=== PATIENT | female | born 1935 | race Hispanic/Latino ===

== ENCOUNTER 2017-03-06 12:31 | Emergency (ER) | payer MEDICARE ==
[2017-03-06] MEDS ORDERED: Ibuprofen 200 MG TAB ONE (12:57)
--- NOTE | 2017-03-06 13:10 | RAD ---
TWO VIEWS LEFT FOREARM: Comparison: None. History: Slipped on ice and fell, left wrist deformity and pain. FINDINGS: Two views of the left forearm shows a fracture of the distal radial metaphysis which is moderately di splaced. No obvious ulnar fracture is seen. Surrounding soft tissue swelling and deformity are seen. IMPRESSION: Distal radius fracture. POS: [facility]
[2017-03-06] MEDS ORDERED: Bupivacaine 0.5% 10 ML VIAL ONE (13:16)
--- NOTE | 2017-03-06 14:38 | RAD ---
LEFT WRIST THREE VIEWS: History: Post reduction. Comparison: Earlier same day. FINDINGS: There has been no significant improvement in alignment of the distal radius fracture. Continued dorsa l space and angulation. Ulnar styloid fracture is present. IMPRESSION: 1. Continued dorsal displacement and angulation with impaction of distal radius fracture. 2. Ulnar styloid fracture. POS: [facility]
== END 2017-03-06 15:00 | disposition home or self-care (01) ==
LOC: SCSER 12:31
DX: S52.612A Displaced fracture of left ulna styloid process, initial encounter for closed fracture (principal); S52.502A Unspecified fracture of the lower end of left radius, initial encounter for closed fracture; E78.5 Hyperlipidemia, unspecified; I10 Essential (primary) hypertension; F41.9 Anxiety disorder, unspecified; F32.9 Major depressive disorder, single episode, unspecified; W18.09XA Striking against other object with subsequent fall, initial encounter
CPT/HCPCS: 25605; J3490

== ENCOUNTER 2017-03-08 07:56 | Day surgery (SDC) | payer MEDICARE ==
[2017-03-08] MEDS ORDERED: CEFAZOLIN/Water 2 GM/20 ML SYRINGE ONE (08:57)
[2017-03-08] MEDS ORDERED: Fentanyl 100 MCG/2 ML VIAL ONE ×3 (09:10→11:13)
[2017-03-08 09:15] LABS: Anion Gap 15 mmol/L (10-20); BUN (Urea Nitrogen) 21 mg/dL (9.8-20.1); Calc. Creatinine Clearance 54 mL/min (70-130); Calcium 9.9 mg/dL (7.8-10.44); Carbon Dioxide 27 mmol/L (23-31); Chloride 100 mmol/L (98-107); Estimated GFR-MDRD 67; Glucose 114 mg/dL (83-110); Potassium 4.3 mmol/L (3.5-5.1); Sodium 138 mmol/L (136-145)
[2017-03-08] MEDS ORDERED: Bupivacaine PF 0.5% 30 ML VIAL ONE (10:07)
[2017-03-08] MEDS ORDERED: ePHEDrine/0.9% NaCl/PF SYRINGE 50 mg/10 ml ONE (12:34)
[2017-03-08] MEDS ORDERED: Propofol 200 MG/20 ML VIAL ONE (12:34)
[2017-03-08] MEDS ORDERED: Dexamethasone 20 MG/5 ML VIAL ONE (12:34)
[2017-03-08] MEDS ORDERED: Ondansetron HCl/PF 4 MG/2 ML Vial ONE (12:34)
[2017-03-08] MEDS ORDERED: Lidocaine 1% PF 5 ML VIAL ONE (12:34)
[2017-03-08] MEDS ORDERED: traMADol HCl 50 MG TAB ONE (13:32)
--- NOTE | 2017-03-08 21:12 | OP ---
DATE OF PROCEDURE: 03/08/2017 PREOPERATIVE DIAGNOSIS: Left distal radius, extraarticular. POSTOPERATIVE DIAGNOSIS: Left distal radius, extraarticular. PROCEDURE: Open reduction internal fixation, left distal radius. ANESTHESIA: General. SURGEON: Madi Patterson M.D. GEODETIC ENGINEER: Jesse Reyes PA-C. IMPLANTS: Synthes 2.4 mm LCP variable angle two column distal radial plate. TOURNIQUET TIME: Approximately 50 minutes at 250 mmHg. COMPLICATIONS: None. DRAINS: None. SPECIMEN: None. OUTCOME: Satisfactory. INDICATIONS: The patient is an 81-year-old lady status post slip on ice, falling on an outstretched left hand. She sustained a displaced extraarticular distal radius fracture. After discussion with p atmark including risks and benefits, we decided to proceed with open reduction internal fixation. In formed consent has been obtained. I believe all questions answered. PROCEDURE IN DETAIL: The patient was brought to the operating room and a timeout performed followed by the induction of general anesthesia. The patient was then positioned supine on the OR table with the left arm held on an arm board. Next, a sterile prep and drape was performed of the left upper ex tremity. The limb was then exsanguinated with Esmarch bandage and tourniquet inflated to 250 mmHg. A volar skin incision was made incorporating an old scar that she had along the volar radial aspect o f the distal forearm and then extending distally to the volar wrist crease. After skin was sharply i ncised, dissection was carried down bluntly between the flexor carpi radialis and brachioradialis. T he radial neurovascular bundle was identified and reflected radially. The pronator quadratus was rel eased off the radial border of the distal radius and reflected medially and then exposure of the dist al radius was complete. The fracture was reduced and valve reduced, held in place provisionally with a K-wire which was passed from the tip of the radial styloid obliquely across the fracture line into the more proximal radial diaphysis. This was then followed by application of a 2-hole two column va riable angle plate along the volar cortex of the distal radius. This was held in place provisionally with a 3.5 mm cortical screw proximal to the fracture. The fracture was then further manipulated un kenyatta C-arm guidance and then four locking screws were placed along the horizontal limb of the plate ca pturing the distal fragment. This was then followed by insertion of the final 3.5 mm screw proximall y. AP lateral C-arm images were then obtained that showed confucianism of radial length, normal radia l inclination, and confucianism of volar tilt. The limb was then irrigated with normal saline with bu lb syringe and then closed in layers with 0 Vicryl deep, followed by 2-0 Vicryl and nylon for the ski n. A Xeroform gauze and fiberglass splint were applied to the wrist and then the tourniquet was let down and the patient transferred to recovery room in stable condition. There were no complications. She tolerated the procedure well.
--- NOTE | 2017-03-09 07:17 | EKG ---
Test Reason : PREOP Blood Pressure : / mmHG Vent. Rate : 082 BPM Atrial Rate : 082 BPM P-R Int : 164 ms QRS Dur : 082 ms QT Int : 376 ms P-R-T Axes : 048 -23 028 degrees QTc Int : 439 ms Normal sinus rhythm Normal ECG When compared with ECG of 24-SEP-2015 11:59, No significant change was found Confirmed by GEOFFREY ALBERT, SLacey ([id number]) on 03/09/2017 7:16:47 AM Referred By: ALISHA Confirmed By:DR. Tabatha HALE MD
--- NOTE | 2017-03-11 18:27 | RAD ---
LEFT WRIST RADIOGRAPHS TWO VIEWS: Date: 03-11-17 Provided Clinical History: ORIF FINDINGS: Comparison with 03-06-17. Interval post-operative changes of dorsal plate and screw fixation of previously described distal rad ial fracture with subsequent improvement alignment. Two spot fluoroscopic post procedure images are s ubmitted. IMPRESSION: As above. POS: [facility]
== END 2017-03-08 14:00 | disposition home or self-care (01) ==
LOC: SDC 07:56
PROVIDERS: ATTEND Orthopaedic Surgery
PROC: 0PSJ04Z Reposition Left Radius with Internal Fixation Device, Open Approach (ICD-10-PCS; principal; 2017-03-08)
DX: S52.552A Other extraarticular fracture of lower end of left radius, initial encounter for closed fracture (principal); E78.5 Hyperlipidemia, unspecified; I10 Essential (primary) hypertension; W00.0XXA Fall on same level due to ice and snow, initial encounter; Y93.01 Activity, walking, marching and hiking; Y92.89 Other specified places as the place of occurrence of the external cause; Z79.2 Long term (current) use of antibiotics; Z79.82 Long term (current) use of aspirin; Z79.51 Long term (current) use of inhaled steroids; Z79.899 Other long term (current) drug therapy; Z88.5 Allergy status to narcotic agent; Z88.8 Allergy status to other drugs, medicaments and biological substances; Z96.653 Presence of artificial knee joint, bilateral; Z90.710 Acquired absence of both cervix and uterus; Z90.49 Acquired absence of other specified parts of digestive tract
CPT/HCPCS: 25607; 73100; 76001; 80048; 93005; 96374; C1713 ×3; 93010; J1100; J2001; J2405; J2704; J3010; S0020

== ENCOUNTER 2017-05-03 09:17 | Inpatient (IN) | payer MEDICARE ==
[~2017-05-03 09:17] MED LIST: Enoxaparin Sodium 60 MG/0.6 ML SYRINGE SC SCH
[2017-05-03] MEDS ORDERED: Acetaminophen 650 MG Suppository ONE (09:29)
[2017-05-03] MEDS ORDERED: Ondansetron HCl/PF 4 MG/2 ML Vial ONE (09:29)
[2017-05-03] MEDS ORDERED: Piperacillin/Tazobactam 4.5 GM VIAL ONE (09:55)
[2017-05-03 10:16] LABS: Band 17 % (5-11); Hemoglobin 13.9 g/dL (12.0-16.0); Lymphocytes 7 % (21-51); MDiff Complete? YES; Macrocytosis SLIGHT = 6-15 cells (100X) (0-5/hpf); Mean Corpuscular HGB CONC 34.6 g/dL (32.0-36.0); Mean Corpuscular Hemoglobin 35.6 pg (27.0-31.0); Monocytes 1 % (0-10); Neutrophil 75 % (42-75); PLT Morphology Comment Appears Adequate; Platelet Count 217 thou/uL (130-400); RBC Distribution Width 11.6 % (11.5-14.5); Red Blood Cell (RBC) Count 3.89 mill/uL (4.20-5.40)
[2017-05-03 10:20] LABS: ALT (SGPT) 15 U/L (8-55); AST (SGOT) 21 U/L (5-34); Albumin 4.3 g/dL (3.4-4.8); Alkaline Phosphatase 65 U/L (40-150); Anion Gap 21 mmol/L (10-20); BUN (Urea Nitrogen) 18 mg/dL (9.8-20.1); Bilirubin, Total 2.5 mg/dL (0.2-1.2); Calc. Creatinine Clearance 0 mL/min (70-130); Calcium 9.9 mg/dL (7.8-10.44); Carbon Dioxide 22 mmol/L (23-31); Chloride 103 mmol/L (98-107); Estimated GFR-MDRD 75; Globulin 3.4 g/dL (2.4-3.5); Glucose 125 mg/dL (83-110); Lipase 22 U/L (8-78); Potassium 3.8 mmol/L (3.5-5.1); Protein, Total 7.7 g/dL (6.0-8.3); Sodium 142 mmol/L (136-145)
[2017-05-03 10:31] LABS: CKMB 2.9 ng/mL (0-6.6)
[2017-05-03] MEDS ORDERED: Nitroglycerin 2% Ointment 1 INCH/1 GM Packet ONE (10:43)
[2017-05-03] MEDS ORDERED: Sodium Chloride 0.9% 2,000 ML IV SCH (11:00)
[2017-05-03] MEDS ORDERED: Acetaminophen 325 MG TAB PO PRN (11:00)
--- NOTE | 2017-05-03 11:09 | RAD ---
CHEST 1 VIEW: HISTORY: Fever. FINDINGS: Cardiac silhouette is magnified by projection. Pulmonary vasculature is upper limits of normal. Med iastinum is midline. No lobar consolidation or evidence of pneumothorax. IMPRESSION: No active cardiopulmonary abnormalities are demonstrated. POS: [facility]
[2017-05-03] MEDS ORDERED: Enoxaparin Sodium 60 MG/0.6 ML SYRINGE ONE (12:00)
--- NOTE | 2017-05-03 12:03 | CT ---
CT ANGIOGRAM CHEST CT ANGIOGRAM ABDOMEN: Date: 05/03/17 Exam includes 3D rendering. HISTORY: 81-year-old female with history of chest pain. FINDINGS: Minimal mostly pleural based posterior parenchymal changes, probably related to some chronic change, as well as some positional change, in the posterior lungs bilaterally. No evidence for aortic aneurys m or dissection. Visualized pulmonary artery segments appear patent. There are some old granuloma jorge l cifications within the mediastinum. Small hiatal hernia. In the abdomen, there is a very high grade stenosis of the origin of the celiac artery. There is mode rate stenosis with prominent calcified plaque at the level of the origin of the superior mesenteric a rtery with a very small intimal flap, evidence for a very small, focal area of intimal dissection con fined to the most proximal superior mesenteric artery. The inferior mesenteric artery is patent. Ther e is a calcified plaque at the origin of the right renal artery with some moderate stenosis. No evide nce of bowel obstruction or abnormal bowel wall thickening. There is borderline splenomegaly. IMPRESSION: 1. No evidence for thoracic or abdominal aortic dissection or aneurysm. 2. No CT evidence for significant acute pulmonary embolism. 3. 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 4. 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 5. Patent inferior mesenteric artery. 6. Moderate stenosis of the origin of the right renal artery. 7. Small hiatal hernia. 8. Borderline splenomegaly. 9. Other findings as above. POS: [facility]
[2017-05-03 12:34] VITALS: BMI 28.6
[2017-05-03] MEDS ORDERED: Iopamidol 370 76% 100 ML VIAL ONE (13:47)
[2017-05-03 14:05] LABS: Lactic Acid 1.4 mmol/L (0.5-2.2)
[2017-05-03 14:06] LABS: Troponin I 4.891 ng/mL (< 0.028)
[2017-05-03] MEDS ORDERED: Nitroglycerin 0.4 MG TAB (25 Tab Bottle) SL PRN (15:18)
[2017-05-03] MEDS ORDERED: Ondansetron HCl/PF 4 MG/2 ML Vial IVP PRN (15:18)
[2017-05-03] MEDS ORDERED: Sodium Chloride 0.9% 1,000 ML IV SCH (15:30)
[2017-05-03] MEDS ORDERED: Morphine 4 MG/ML VIAL SLOW IVP PRN (16:13)
[2017-05-03 16:36] LABS: Troponin I 5.583 ng/mL (< 0.028)
[2017-05-03] MEDS ORDERED: Nitroglycerin 2% Ointment 1 INCH/1 GM Packet TOP SCH (18:00)
--- NOTE | 2017-05-03 18:20 | HP ---
DATE OF ADMISSION: 05/03/2017 ADMITTING PHYSICIAN: Dr. Silverio Arthur. PRIMARY CARE PHYSICIAN: Dr. Valencia. CHIEF COMPLAINT: "I feel bad." HISTORY OF PRESENT ILLNESS: The patient is a pleasant 81-year-old recently being treated for a denta l abscess. The patient called her daughter this morning, because she woke up with chest discomfort, nausea, vomiting, diaphoresis, shortness of breath. The patient also had an episode of urinary incon tinence as well as abdominal pain that radiated to her back. She denies diarrhea, constipation or lo ss of consciousness. REVIEW OF SYSTEMS: The following complete review of systems was negative, unless otherwise mentioned in the HPI or below: Constitutional: Weight loss or gain, sense of well-being, ability to conduct usual activities, exerc ise tolerance. Skin/Breast: Rash, itching, changes in hair growth or loss, nail changes, breast lumps, tenderness, swelling, nipple discharge. Eyes: Vision, double vision, tearing, blind spots, pain. ENT/Mouth: Headaches (location, time of onset, duration, precipitating factors), vertigo, lightheade dness, injury. Vision, double vision, tearing, blind spots, pain, nose bleeding, colds, obstruction, discharge, dental difficulties, gingival bleeding, dentures, neck stiffness, pain, tenderness, masses in thyroid or other areas Cardiovascular: Precordial pain, substernal distress, palpitations, syncope, dyspnea on exertion, or thopnea, nocturnal paroxysmal dyspnea, edema, cyanosis, hypertension, heart murmurs, varicosities, ph lebitis, claudication. Respiratory: Pain, shortness of breath, wheezing, stridor, cough, hemoptysis, fever or night sweats. Gastrointestinal: Poor appetite, dysphagia, indigestion, abdominal pain, heartburn, eructation, nause a, vomiting, hematemesis, jaundice, constipation, or diarrhea, abnormal stools (santana-colored, tarry, bloody, greasy, foul smelling), flatulence, hemorrhoids, recent changes in bowel habits. Genitourinary: Urgency, frequency, dysuria, nocturia, hematuria, polyuria, oliguria, unusual (or gilson nge in) color of urine, stones, hesitancy, change in size of stream, dribbling, acute retention or in continence, libido, potency. Musculoskeletal: Pain, swelling, redness or heat of muscles or joints, limitation, of motion, muscul ar weakness, atrophy, cramps. Neurologic/Psychiatric: Convulsions, paralyses, tremor, incoordination, paresthesias, difficulties w ith memory of speech, sensory or motor disturbances, or muscular coordination (ataxia, tremor), emoti onal problems, anxiety, depression, previous psychiatric care, unusual perceptions, hallucinations. Allergy/Immunologic: Skin rash, anemia, bleeding tendency, polydipsia, polyuria, intolerance to heat or cold. PAST MEDICAL HISTORY: Positive for essential thrombocytosis, dental abscess, hypertension, dyslipide reg. PAST SURGICAL HISTORY: Positive for recent tooth extraction, arthroscopic knee procedures, appendect shun, cholecystectomy, and hysterectomy. PSYCHIATRIC HISTORY: Positive for depression and anxiety. SOCIAL HISTORY: The patient lives alone. Denies alcohol use, denies drug use. Has no smoking histo ry. Has good family support from her daughter. FAMILY HISTORY: Includes diabetes. DRUG ALLERGIES: HYDROCODONE. She has vomiting and hallucinations. HOME MEDICATIONS: Include hydroxyurea 500 mg t.i.w., Zoloft 100 mg daily, triamterene/HCTZ at 37.5 a nd 25 mg respectively, vitamin D 200 mg every day, fluticasone spray 50 mcg every day, aspirin 81 mg every day. PHYSICAL EXAMINATION: VITAL SIGNS: Temperature 97.7, pulse 84, respirations 20, O2 sat 98% on room air, blood pressure 105 /45. GENERAL: She is in no acute distress, pleasant, cooperative, coherent. HEAD: Normocephalic, atraumatic. ENT: External ear normal, nares normal. CARDIAC: Regular rate and rhythm, no murmurs, regurg, gallops. LUNGS: No wheezing, no rales, no rhonchi. Clear to auscultation bilaterally. ABDOMEN: Normoactive bowel sounds. Epigastric pain with slight palpation, reproducible. EXTREMITIES: No clubbing, cyanosis or edema. NEUROLOGIC: No focal neurologic deficits. Cranial nerves II through XII grossly intact. LABORATORY DATA AND IMAGES: EKG performed shows left axis deviation with poor anterior R-wave progre ssion, possible ST elevation in V2. Chest CT, negative for aortic dissection or aneurysm. There was stenosis and chronic findings of the branching vasculature including the celiac and mesenteric arter ies including an intimal dissection, no pulmonary embolus visualized. Chest x-ray shows no active ca rdiopulmonary abnormalities. CBC shows a white count of 6.0, hemoglobin 13.9, hematocrit 40.1, plate lets 217, 70% bands. Chem-7 shows sodium of 142, potassium 3.8, chloride 103, CO2 22, BUN 18, creati nine 0.74, glucose 125. Lactic acid 3.2 with a reflex repeat of 1.4, total bilirubin 2.5, CK-MB of 2 .9, troponin first set 0.5, second set of troponin 4.891. BNP 64, albumin 4.3, lipase 22. ASSESSMENT: 1. Gdf-SA-lkbzwyz elevation myocardial infarction. 2. Possible serous, rule out sepsis. 3. Hyperbilirubinemia. 4. Essential thrombocytosis or history thereof. PLAN: The patient admitted to [facility], placed on Lovenox 1 mg/kg b.i.d. Cardiology has been notified. I have personally spoke with Dr. Panchal and informed him of the patient's troponin level of 4.891. They will assess the patient and direct further therapy. I will place her on beta irasema and enox aparin as we await the Cardiology evaluation. We will continue broad spectrum antibiotics as the pat ient has a history of dental abscess and to cover for possible SBE.
[2017-05-03] MEDS ORDERED: Famotidine/PF 20 mg/2ml Vial SLOW IVP SCH (21:00)
[2017-05-03] MEDS: Enoxaparin Sodium 60 MG/0.6 ML SYRINGE SC SCH (21:56)
[2017-05-03] MEDS: Metoprolol Tartrate 25 MG TAB PO SCH (21:56)
[2017-05-03] MEDS: Famotidine 40 MG/4 ML VIAL SLOW IVP SCH (21:59)
[2017-05-04 04:49] LABS: Anion Gap 11 mmol/L (10-20); BUN (Urea Nitrogen) 19 mg/dL (9.8-20.1); Calc. Creatinine Clearance 60 mL/min (70-130); Calcium 7.9 mg/dL (7.8-10.44); Carbon Dioxide 25 mmol/L (23-31); Chloride 107 mmol/L (98-107); Estimated GFR-MDRD 74; Glucose 88 mg/dL (83-110); Potassium 3.1 mmol/L (3.5-5.1); Sodium 140 mmol/L (136-145)
[2017-05-04 05:25] LABS: #Eosinphils 0.1 thou/uL (0.0-0.7); #Lymphocytes 1.7 thou/uL (1.20-3.40); #Monocytes 1.1 thou/uL (0.11-0.59); #Neutrophils 9.1 thou/uL (1.40-6.50); %Basophils 0.3 % (0.0-1.0); %Eosinophils 0.5 % (0.0-10.0); %Monocytes 9.1 % (0.0-10.0); %Neutrophils 76.1 % (42.0-75.0); Hemoglobin 11.7 g/dL (12.0-16.0); MDiff Complete? YES; Macrocytosis SLIGHT = 6-15 cells (100X) (0-5/hpf); Mean Corpuscular HGB CONC 33.8 g/dL (32.0-36.0); Mean Corpuscular Hemoglobin 37.2 pg (27.0-31.0); Mean Platelet Volume 7.9 fL (7.4-10.4); Platelet Count 178 thou/uL (130-400); RBC Distribution Width 11.9 % (11.5-14.5); Red Blood Cell (RBC) Count 3.15 mill/uL (4.20-5.40)
[2017-05-04] MEDS ORDERED: Sodium Chloride 0.9% 1,000 ML IV SCH ×2 (09:00→10:43)
[2017-05-04] MEDS ORDERED: Communication Order-Pharmacy FS SCH (09:00)
[2017-05-04] MEDS ORDERED: Lidocaine 1% (PF) 30 ML VIAL ONE (09:25)
[2017-05-04] MEDS: Metoprolol Tartrate 25 MG TAB PO SCH ×2 (09:31→20:27)
[2017-05-04] MEDS: Aspirin 81 mg Enteric Coated Tablet PO SCH (09:48)
[2017-05-04] MEDS: Enoxaparin Sodium 60 MG/0.6 ML SYRINGE SC SCH (10:07)
[2017-05-04] MEDS ORDERED: Heparin 10,000 UNITS/1 ML VIAL ONE (10:09)
[2017-05-04] MEDS ORDERED: Midazolam HCl 2 mg/2 ml Vial ONE (10:09)
[2017-05-04] MEDS ORDERED: Protamine Sulfate 50 MG/5 ML VIAL ONE (10:34)
[2017-05-04] MEDS ORDERED: traMADol HCl 50 MG TAB PO PRN (10:42)
[2017-05-04] MEDS ORDERED: Nitroglycerin 0.4 MG TAB (25 Tab Bottle) SL PRN (10:42)
[2017-05-04] MEDS ORDERED: Sodium Chloride 0.9% 200 ML IV SCH (10:45)
[2017-05-04] MEDS: Famotidine 40 MG/4 ML VIAL SLOW IVP SCH ×2 (12:16→20:26)
[2017-05-04 12:19] LABS: CKMB 12.9 ng/mL (0-6.6); Troponin I 4.074 ng/mL (< 0.028)
--- NOTE | 2017-05-04 13:19 | CON ---
DATE OF CONSULTATION: 05/04/2017 HISTORY: Johanna Gomez is an 81-year-old female who has been evaluated by Dr. Marte in the past. The daughter states approximately 10 or 12 years ago, she underwent cardiac catheterization and was told that everything was normal, but that she had some blockages in her leg arteries. She denies ever having any type of cardiac problems in the past. On 05/02/2017, she underwent extraction of an abscessed tooth at her dentist. Then, on the morning of 05/03/2017, she began to have weakness, shaking, shortness of breath, diaphoresis, nausea and vomiting as well as onset of chest discomfort. She went to [facility]. She did have evidence of Q-wave in V1 and V2, which is new from EKG from 2016. There was also approximately [address] elevation in V2. On arrival here, she was given intravenous morphine which she states relieved the pain. However, she has continued to have some nausea. PAST MEDICAL HISTORY: Hypertension. She denies any history of diabetes or hypercholesterolemia. She also has essential thrombocytosis. Recent dental abscess. PAST SURGICAL HISTORY: A tooth extraction a day prior to admission, arthroscopic knee procedures, appendectomy, cholecystectomy, hysterectomy, and left wrist surgery. MEDICATIONS: Aspirin 81 daily; vitamin D3; Flonase 2 sprays each side p.r.n.; hydroxyurea 500 mg every Saturday, Saturday, Saturday; Zoloft 100 mg at bedtime; Dyrenium 25 q.a.m.; triamterene/hydrochlorothiazide 37.5/25 q.a.m. ALLERGIES: HYDROCODONE, causes vomiting and hallucinations. SOCIAL HISTORY: She does not smoke or drink. FAMILY HISTORY: Negative for coronary artery disease, CABG, or myocardial infarction. REVIEW OF SYSTEMS: Twelve point review of systems otherwise unremarkable. PHYSICAL EXAMINATION: VITAL SIGNS: 92/43, pulse of 70. HEENT: PERRL. NECK: Supple. LUNGS: Chest is clear. CARDIAC: S1, S2 normal without any S3, S4, murmurs or rubs. Carotid upstrokes normal without bruits. ABDOMEN: Normal bowel sounds without tenderness, organomegaly or masses. EXTREMITIES: Revealed no clubbing, cyanosis or edema. NEUROLOGIC: Grossly intact. SKIN: Warm and dry. LABORATORY DATA: EKG revealed Q-wave in V1 and V2 with [address] elevation in V2 which appears to be new from previous EKG. Hemoglobin 11.7, hematocrit 34.7 , white count 12,000, platelets 178,000. Sodium 140, potassium 3.8, chloride 107, carbon dioxide 25, BUN 19, creatinine 0.75. Troponin I 5.583. BNP 64.3. Lactic acid was 3.2 yesterday and fell to 1.4. CK-MB is normal at 2.9. IMPRESSION: 1. Septal infarction. She is not having pain, but she continues to have intermittent nausea with this. 2. Hypertension. 3. Recent dental abscess with tooth extraction. 4. Essential thrombocytosis which appears to be under good control with hydroxyurea. PLAN: The situation was discussed with the patient, her son and daughter. It was recommended she undergo cardiac catheterization. Risks of this were discussed including , myocardial infarction, dye reaction, vascular injury , CVA, transfusion, limb loss, renal loss, etc. Also, risk of intervention with PTCA and stent placement were discussed including , myocardial infarction, emergent CABG, restenosis, stent thrombosis, vessel perforation, etc. With some ongoing concerns about her dental status and possible future tooth extractions, I will place a bare metal stent to limit the amount of time need to be exposed to dual platelet therapy. She understands and agrees to proceed. SID
[2017-05-04] MEDS ORDERED: Iopamidol 370 76% 50 ML VIAL FS ONE (13:27)
[2017-05-04] MEDS ORDERED: Iopamidol 370 76% 100 ML VIAL ONE (13:27)
--- NOTE | 2017-05-04 16:42 | CON ---
DATE OF CONSULTATION: 05/04/2017 HISTORY OF PRESENT ILLNESS: Ms. Johanna Gomez is an 81-year-old female admitted with chest pain, hina rtness of breath and feeling poorly. She sees Dr. Valencia. 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, she was transferred here. Cardiac catheterization, please review cardiology's note. Apparently, she has got a cardiomyopathy w ith normal coronaries. She was feeling bad all over. She recently underwent a dental abscess workup, requiring antibiotics. PAST MEDICAL HISTORY: Pertinent for thrombocytosis. Apparently hypertension, hyperlipidemia. PAST SURGICAL HISTORY: Hysterectomy, appendix, gallbladder, arthroscopic surgery, tooth extractions. TOBACCO: None. ALCOHOL: None. 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 MEDICATIONS: From home includes Zoloft 100, hydroxyurea 1 a day, Flonase, calcium, aspirin. ALLERGIES: HYDROCODONE, CODEINE, DONEPEZIL. REVIEW OF SYSTEMS: Ten point negative. PHYSICAL EXAMINATION: VITAL SIGNS: Blood pressure is 102/40, sats are 94% on 2 liters, temperature 97. CHEST: With no wheezing, no crackle. CARDIAC: Normal S1 and S2. Regular. LABORATORY DATA: White count 12,000, H and H 12 and 34, platelet count 178. Electrolytes are normal . Troponin 5.58. CT chest, angio negative. Chest x-ray is normal. IMPRESSION: 1. Chest pain, elevated troponin, status post cardiac catheterization with cardiomyopathy. 2. Chronic smoker. 3. Thrombocytosis, platelet count is 178. PLAN: Continue cardiac care. We will follow while in the MICU. Please note that this consultation note 70 minutes of which 50% of the time was spent in direct patie nt care.
--- NOTE | 2017-05-04 18:09 | PDOC.PN ---
- Subjective Encounter Start Date: 05/04/17 Encounter Start Time: 14:00 Subjective: no new complaints - Objective Resuscitation Status: Resuscitation Status FULL:Full Resuscitation MAR Reviewed: Yes Vital Signs & Weight: Vital Signs (12 hours) Temp Pulse Resp BP Pulse Ox 05/04/17 16:35 97.2 F L 70 20 105/50 L 95 05/04/17 12:30 97.8 F 64 16 105/44 L 93 L 05/04/17 11:00 97.7 F 67 18 102/42 L 94 L 05/04/17 08:00 97.7 F 70 24 H 97 05/04/17 07:54 97.7 F 70 24 H 92/43 L 97 05/04/17 06:17 66 18 94/43 L 100 Weight Weight 143 lb 11.2 oz I&O: 05/03/17 05/04/17 05/05/17 06:59 06:59 06:59 Intake Total 1208 240 Output Total 1150 Balance 58 240 Result Diagrams: 05/04/17 04:18 05/04/17 04:18 Phys Exam - Physical Examination Constitutional: NAD HEENT: PERRLA, moist MMs, sclera anicteric Neck: supple, full ROM Respiratory: no wheezing, no rhonchi Cardiovascular: RRR Gastrointestinal: soft, non-tender, positive bowel sounds Musculoskeletal: no edema, pulses present Neurological: non-focal, moves all 4 limbs Psychiatric: normal affect, A&O x 3 Skin: no rash Dx/Plan (1) NSTEMI (non-ST elevated myocardial infarction) Code(s): I21.4 - NON-ST ELEVATION (NSTEMI) MYOCARDIAL INFARCTION Status: Acute (2) Thrombocytosis Status: Acute (3) HTN (hypertension) Code(s): I10 - ESSENTIAL (PRIMARY) HYPERTENSION Status: Chronic (4) Dental abscess Code(s): K04.7 - PERIAPICAL ABSCESS WITHOUT SINUS Status: Acute - Plan cont current plan of care, plan discussed w/ family, continue antibiotics s/p cardiac cath. EF 35% further reccs per cardiology. pt stable continue -: anticoagulation lifevest pending. * .
[2017-05-04] MEDS ORDERED: Potassium Chloride 20 MEQ TAB PO SCH (19:00)
[2017-05-05 04:11] LABS: #Eosinphils 0.1 thou/uL (0.0-0.7); #Lymphocytes 0.9 thou/uL (1.20-3.40); #Monocytes 0.6 thou/uL (0.11-0.59); #Neutrophils 5.7 thou/uL (1.40-6.50); %Basophils 0.2 % (0.0-1.0); %Eosinophils 0.8 % (0.0-10.0); %Lymphocytes 12.7 % (21.0-51.0); %Monocytes 7.5 % (0.0-10.0); %Neutrophils 78.8 % (42.0-75.0); Hemoglobin 11.5 g/dL (12.0-16.0); Mean Corpuscular HGB CONC 33.9 g/dL (32.0-36.0); Mean Corpuscular Hemoglobin 37.5 pg (27.0-31.0); Platelet Count 157 thou/uL (130-400); RBC Distribution Width 11.9 % (11.5-14.5); Red Blood Cell (RBC) Count 3.06 mill/uL (4.20-5.40); White Blood Cell (WBC) Count 7.3 thou/uL (4.8-10.8)
[2017-05-05 04:57] LABS: Anion Gap 11 mmol/L (10-20); BUN (Urea Nitrogen) 14 mg/dL (9.8-20.1); Calc. Creatinine Clearance 72 mL/min (70-130); Calcium 7.9 mg/dL (7.8-10.44); Carbon Dioxide 23 mmol/L (23-31); Cardiac Risk 3.3 (Less than 4.5); Chloride 110 mmol/L (98-107); Cholesterol 108 mg/dl (< 200 Desired); Estimated GFR-MDRD Greater than 90; Glucose 100 mg/dL (83-110); HDL Cholesterol 33 mg/dL (>60 Neg Risk); LDL Cholesterol, Calculated 61 mg/dL; Potassium 3.5 mmol/L (3.5-5.1); Sodium 140 mmol/L (136-145); Triglycerides 72 mg/dL (Less than 150)
[2017-05-05] MEDS: Metoprolol Tartrate 25 MG TAB PO SCH (09:14)
[2017-05-05] MEDS: Famotidine 40 MG/4 ML VIAL SLOW IVP SCH ×2 (09:14→20:29)
[2017-05-05] MEDS: Potassium Chloride 20 MEQ TAB PO SCH (09:14)
[2017-05-05] MEDS: Aspirin 81 mg Enteric Coated Tablet PO SCH (09:14)
--- NOTE | 2017-05-05 13:07 | PDOC.PN ---
- Subjective Encounter Start Date: 05/05/17 Encounter Start Time: 13:09 Subjective: No new complaints. -: No acute events overnight. - Objective Resuscitation Status: Resuscitation Status FULL:Full Resuscitation MAR Reviewed: Yes Vital Signs & Weight: Vital Signs (12 hours) Temp Pulse Resp BP Pulse Ox 05/05/17 12:00 98.8 F 70 20 105/42 L 92 L 05/05/17 08:00 98.1 F 70 20 122/68 90 L 05/05/17 03:55 98.9 F 66 17 105/43 L 94 L Weight Weight 143 lb 11.2 oz I&O: 05/04/17 05/05/17 05/06/17 06:59 06:59 06:59 Intake Total 1208 1130 Output Total 1150 400 Balance 58 730 Result Diagrams: 05/05/17 03:51 05/05/17 03:51 Phys Exam - Physical Examination Constitutional: NAD HEENT: PERRLA, moist MMs, sclera anicteric Neck: no JVD, supple, full ROM Respiratory: no wheezing, no rales, no rhonchi, clear to auscultation bilateral Cardiovascular: RRR, no significant murmur, no rub Gastrointestinal: soft, non-tender, no distention, positive bowel sounds Musculoskeletal: no edema, pulses present Neurological: non-focal, moves all 4 limbs Psychiatric: normal affect, A&O x 3 Skin: no rash, normal turgor Dx/Plan (1) NSTEMI (non-ST elevated myocardial infarction) Code(s): I21.4 - NON-ST ELEVATION (NSTEMI) MYOCARDIAL INFARCTION Status: Acute Comment: Stable s/p catheterization. EF 35% per Cath. Life vest pending. f/u TTE report (2) Thrombocytosis Status: Chronic Comment: Stable. Will continue Hydrea. (3) HTN (hypertension) Code(s): I10 - ESSENTIAL (PRIMARY) HYPERTENSION Status: Chronic Qualifiers: Hypertension type: essential hypertension Qualified Code(s): I10 - Essential (primary) hypertension Comment: Controlled and at goal. Continue home medications. - Plan cont current plan of care, plan discussed w/ family * . Review of Systems - Medications/Allergies Allergies/Adverse Reactions: Allergies Allergy/AdvReac Type Severity Reaction Status Date / Time codeine Allergy Verified 01/18/18 16:15 donepezil Allergy Verified 03/07/17 16:15 hydrocodone Allergy Emesis Verified 03/07/17 16:15 Medications: Current Medications Aspirin (Ecotrin) 81 mg PO DAILY [facility] Last Admin: 05/05/17 09:14 Dose: 81 mg Famotidine (Pepcid) 20 mg SLOW IVP Q12HR [facility] Last Admin: 05/05/17 09:14 Dose: 20 mg Hydroxyurea (Hydrea) 500 mg PO [facility] Metoprolol Tartrate (Lopressor) 12.5 mg PO BID [facility] Last Admin: 05/05/17 09:14 Dose: 12.5 mg Morphine Sulfate (Morphine) 2 mg SLOW IVP Q4H PRN PRN Reason: Pain Last Admin: 05/03/17 16:20 Dose: 2 mg Nitroglycerin (Nitrostat) 0.4 mg SL Q5MIN PRN PRN Reason: Chest Pain Ondansetron HCl (Zofran) 4 mg IVP Q6H PRN PRN Reason: Nausea/Vomiting Last Admin: 05/04/17 08:48 Dose: 4 mg Potassium Chloride (K-Dur) 20 meq PO QAM-WM [facility] Last Admin: 05/05/17 09:14 Dose: 20 meq Sertraline HCl (Zoloft) 100 mg PO HS [facility] Last Admin: 05/04/17 20:27 Dose: 100 mg Tramadol HCl (Ultram) 50 mg PO Q6H PRN PRN Reason: Moderate Pain (4-6)
[2017-05-05] MEDS: Carvedilol 3.125 MG TAB PO SCH (17:29)
--- NOTE | 2017-05-05 18:14 | PRG ---
DATE OF SERVICE: 05/05/2017 SUBJECTIVE: This morning, she is better. OBJECTIVE: VITAL SIGNS: Sats are 90% on room air, respiration 20, temperature 98, blood pressure 120/68. CHEST: Reveal no wheezing. CARDIAC: Normal S1, S2. No gallops. ABDOMEN: Soft, no masses. LABORATORY DATA: White count 10,000, H&H 10 nd 35, platelet count normal. Electrolytes are normal. Troponin is elevated. IMPRESSION: 1. Non-ST segment myocardial infarction. 2. Thrombocytosis. 3. Hypertension. 4. Dental abscess. PLAN: From pulmonary standpoint, we will continue cardiac care, supportive care.
[2017-05-05] MEDS: Heparin 5,000 UNITS/ML VIAL SC SCH (20:29)
[2017-05-06 04:45] LABS: #Eosinphils 0.1 thou/uL (0.0-0.7); #Lymphocytes 1.1 thou/uL (1.20-3.40); #Monocytes 0.4 thou/uL (0.11-0.59); #Neutrophils 3.7 thou/uL (1.40-6.50); %Basophils 0.1 % (0.0-1.0); %Eosinophils 1.5 % (0.0-10.0); %Lymphocytes 20.7 % (21.0-51.0); %Monocytes 7.1 % (0.0-10.0); %Neutrophils 70.6 % (42.0-75.0); Mean Corpuscular HGB CONC 33.8 g/dL (32.0-36.0); Mean Corpuscular Hemoglobin 36.4 pg (27.0-31.0); Mean Platelet Volume 7.6 fL (7.4-10.4); Platelet Count 153 thou/uL (130-400); Platelet Count 154 thou/uL (130-400); RBC Distribution Width 11.8 % (11.5-14.5); Red Blood Cell (RBC) Count 3.03 mill/uL (4.20-5.40); White Blood Cell (WBC) Count 5.3 thou/uL (4.8-10.8)
[2017-05-06 05:01] LABS: Anion Gap 10 mmol/L (10-20); BUN (Urea Nitrogen) 11 mg/dL (9.8-20.1); Calc. Creatinine Clearance 67 mL/min (70-130); Calcium 8.4 mg/dL (7.8-10.44); Carbon Dioxide 26 mmol/L (23-31); Chloride 107 mmol/L (98-107); Estimated GFR-MDRD 83; Glucose 108 mg/dL (83-110); Potassium 3.6 mmol/L (3.5-5.1); Sodium 139 mmol/L (136-145)
[2017-05-06] MEDS: Potassium Chloride 20 MEQ TAB PO SCH (09:30)
[2017-05-06] MEDS: Carvedilol 3.125 MG TAB PO SCH ×2 (09:30→17:55)
[2017-05-06] MEDS: Heparin 5,000 UNITS/ML VIAL SC SCH ×2 (09:31→20:41)
[2017-05-06] MEDS: Aspirin 81 mg Enteric Coated Tablet PO SCH (09:31)
[2017-05-06] MEDS: Hydroxyurea 500 MG CAP PO SCH (09:31)
[2017-05-06] MEDS: Famotidine 40 MG/4 ML VIAL SLOW IVP SCH ×2 (09:31→20:40)
--- NOTE | 2017-05-06 10:30 | PRG ---
DATE OF SERVICE: 05/06/2017 Johanna Gomez is awake, alert, responsive, no shortness of breath. She is walking the mcclellan. PHYSICAL EXAMINATION: VITAL SIGNS: Sats are 90% on 2 liters, temperature 98, pulse 60, respiration rate 18. Blood pressur e 90/47. CHEST: Chest revealed no wheezing. CARDIAC: Normal S1, S2. ABDOMEN: Soft, no masses. LABORATORY: White count 5000, H&H 11 and 32, platelet count is normal. IMPRESSION: 1. Cardiomyopathy. 2. Hypoxemia. 3. Respiratory failure. PLAN: The patient is scheduled for a LifeVest. Subsequently she can be discharged home. Pulmonary will follow while in the IMCU.
--- NOTE | 2017-05-06 13:00 | PDOC.PN ---
- Subjective Encounter Start Date: 05/06/17 Encounter Start Time: 13:02 Subjective: No complaints. Sitting on chair bedside. -: No acute events overnight - Objective Resuscitation Status: Resuscitation Status FULL:Full Resuscitation MAR Reviewed: Yes Vital Signs & Weight: Vital Signs (12 hours) Temp Pulse Pulse Pulse Resp BP BP 05/06/17 11:14 99.2 F 68 16 05/06/17 09:06 86 73 128/51 L 118/57 L 05/06/17 08:00 98.2 F 60 18 05/06/17 07:00 98.2 F 60 18 05/06/17 04:00 99.4 F 65 16 BP Pulse Ox Pulse Ox Pulse Ox 05/06/17 11:14 114/48 L 93 L 05/06/17 09:06 92 L 95 05/06/17 08:00 94 L 05/06/17 07:00 119/47 L 95 05/06/17 04:00 99/45 L 92 L Weight Weight 145 lb 4.8 oz I&O: 05/05/17 05/06/17 05/07/17 06:59 06:59 06:59 Intake Total 1130 480 Output Total 400 750 Balance 730 -270 Result Diagrams: 05/06/17 04:27 05/06/17 04:27 Phys Exam - Physical Examination Constitutional: NAD HEENT: PERRLA, moist MMs, sclera anicteric Neck: no JVD, supple, full ROM Respiratory: no wheezing, no rales, no rhonchi, clear to auscultation bilateral Cardiovascular: RRR, no significant murmur, no rub Gastrointestinal: soft, non-tender, no distention, positive bowel sounds Musculoskeletal: no edema, pulses present Neurological: non-focal, moves all 4 limbs Psychiatric: normal affect, A&O x 3 Skin: no rash, normal turgor Dx/Plan (1) NSTEMI (non-ST elevated myocardial infarction) Code(s): I21.4 - NON-ST ELEVATION (NSTEMI) MYOCARDIAL INFARCTION Status: Acute Comment: Chest pain free. Stable s/p catheterization. EF 35% per Cath and 35-40% per ECHO. Also w moderate MR and severe TR. Life vest pending. (2) Thrombocytosis Status: Chronic Comment: Stable. Will continue Hydrea. (3) HTN (hypertension) Code(s): I10 - ESSENTIAL (PRIMARY) HYPERTENSION Status: Chronic Qualifiers: Hypertension type: essential hypertension Qualified Code(s): I10 - Essential (primary) hypertension Comment: Controlled and at goal. Continue home medications. - Plan cont current plan of care, plan discussed w/ family, DVT proph w/heparin Awaiting Life Vest * . Review of Systems - Medications/Allergies Allergies/Adverse Reactions: Allergies Allergy/AdvReac Type Severity Reaction Status Date / Time codeine Allergy Verified 03/07/17 16:15 donepezil Allergy Verified 03/07/17 16:15 hydrocodone Allergy Emesis Verified 03/07/17 16:15 Medications: Current Medications Aspirin (Ecotrin) 81 mg PO DAILY [facility] Last Admin: 05/06/17 09:31 Dose: 81 mg Carvedilol (Coreg) 1.5625 mg PO BID-[facility] Last Admin: 05/06/17 09:30 Dose: 1.5625 mg Famotidine (Pepcid) 20 mg SLOW IVP Q12HR [facility] Last Admin: 05/06/17 09:31 Dose: 20 mg Heparin Sodium (Porcine) (Heparin) 5,000 units SC BID [facility] Last Admin: 05/06/17 09:31 Dose: 5,000 units Hydroxyurea (Hydrea) 500 mg PO MWF [facility] Last Admin: 05/06/17 09:31 Dose: 500 mg Morphine Sulfate (Morphine) 2 mg SLOW IVP Q4H PRN PRN Reason: Pain Last Admin: 05/03/17 16:20 Dose: 2 mg Nitroglycerin (Nitrostat) 0.4 mg SL Q5MIN PRN PRN Reason: Chest Pain Ondansetron HCl (Zofran) 4 mg IVP Q6H PRN PRN Reason: Nausea/Vomiting Last Admin: 05/04/17 08:48 Dose: 4 mg Potassium Chloride (K-Dur) 20 meq PO QAM-[facility] Last Admin: 05/06/17 09:30 Dose: 20 meq Sertraline HCl (Zoloft) 100 mg PO HS [facility] Last Admin: 05/05/17 20:30 Dose: 100 mg Tramadol HCl (Ultram) 50 mg PO Q6H PRN PRN Reason: Moderate Pain (4-6)
--- NOTE | 2017-05-06 13:39 | PQF ---
DATE: 05-06-17 ATTN: DR. HERRERA ELIZALDE Please exercise your independent, professional judgment in responding to the clarification form. Clinical indicators are provided on the bottom of this form for your review Please check appropriate box(s) to clarify if the following diagnosis has been ruled in or ruled out: SEPSIS [ ] Ruled in diagnosis [ ] Continue to treat [ ] Resolved [x ] Ruled out diagnosis [ ] Other diagnosis [ ] Unable to determine In addition, please specify: Present on Admission (POA): [ x ] Yes [ ] No [ ] Unable to determine For continuity of documentation, please document condition throughout progress notes and discharge summary. Thank You. CLINICAL INDICATORS - SIGNS / SYMPTOMS / LABS ER DIAGNOSIS: ACUTE CP, VERIFY NSTEMI, FEVER/SIRS, R/O SEPSIS, HYPERBILIRUBINEMIA H&P: NSTEMI, POSSIBLE SEROUS, RULE OUT SEPSIS WBC: 3-17-18: 12.0 BANDS: 3-16-18: 17 LACTIC ACID: 3-16-18: 3.2 TEMP: (ER): 101.8, RR: (ER): 22 3-17-18: 24, 24 3-18-18: 22 BP: 3-16-18: 94/43, 88/42, 3-17-18: 94/43, 92/43, 97/39 RISK FACTORS: H&P: NSTEMI, POSSIBLE SEROUS, R/O SEPSIS, POSSIBLE SBE, RECENT DENTAL ABSCESS TREATMENTS: (ER): VANCOMYCIN, ZOSYN, NORMAL SALINE IVF (This form is maintained as a part of the permanent medical record) 2014 [employer] All Rights Reserved [email or web address] Office: [phone] [facility] HOSPITALEvan
[2017-05-06] MEDS ORDERED: Furosemide 20 MG/2 ML VIAL SLOW IVP SCH (14:30)
--- NOTE | 2017-05-06 20:09 | EKG ---
Test Reason : Blood Pressure : / mmHG Vent. Rate : 071 BPM Atrial Rate : 071 BPM P-R Int : 156 ms QRS Dur : 078 ms QT Int : 396 ms P-R-T Axes : 058 -02 064 degrees QTc Int : 430 ms Normal sinus rhythm Low voltage QRS Cannot rule out Anterior infarct (cited on or before 04-MAY-2017) Abnormal ECG When compared with ECG of 04-MAY-2017 14:22, (Unconfirmed) Serial changes of Anterior infarct Present Confirmed by GEOFFREY ALBERT, DR. Mays ([id number]) on 05/06/2017 8:09:03 PM Referred By: ZAKIYA Confirmed By:DR. Tabatha HALE MD
[2017-05-07 04:49] LABS: #Eosinphils 0.1 thou/uL (0.0-0.7); #Lymphocytes 1.3 thou/uL (1.20-3.40); #Monocytes 0.5 thou/uL (0.11-0.59); #Neutrophils 2.1 thou/uL (1.40-6.50); %Basophils 0.4 % (0.0-1.0); %Eosinophils 2.7 % (0.0-10.0); %Lymphocytes 32.9 % (21.0-51.0); %Monocytes 11.1 % (0.0-10.0); %Neutrophils 52.9 % (42.0-75.0); Hemoglobin 11.8 g/dL (12.0-16.0); Mean Corpuscular HGB CONC 34.2 g/dL (32.0-36.0); Mean Corpuscular Hemoglobin 37.4 pg (27.0-31.0); Mean Platelet Volume 7.9 fL (7.4-10.4); Platelet Count 192 thou/uL (130-400); RBC Distribution Width 11.4 % (11.5-14.5); Red Blood Cell (RBC) Count 3.17 mill/uL (4.20-5.40)
[2017-05-07 05:10] LABS: Anion Gap 8 mmol/L (10-20); BUN (Urea Nitrogen) 12 mg/dL (9.8-20.1); Calc. Creatinine Clearance 67 mL/min (70-130); Calcium 8.9 mg/dL (7.8-10.44); Carbon Dioxide 33 mmol/L (23-31); Chloride 103 mmol/L (98-107); Estimated GFR-MDRD 82; Glucose 100 mg/dL (83-110); Potassium 3.5 mmol/L (3.5-5.1); Sodium 140 mmol/L (136-145)
[2017-05-07] MEDS ORDERED: Lisinopril 2.5 MG TAB PO SCH (09:00)
[2017-05-07] MEDS: Carvedilol 3.125 MG TAB PO SCH ×2 (09:12→18:59)
[2017-05-07] MEDS: Famotidine 40 MG/4 ML VIAL SLOW IVP SCH ×2 (09:13→21:04)
[2017-05-07] MEDS: Aspirin 81 mg Enteric Coated Tablet PO SCH (09:13)
[2017-05-07] MEDS: Potassium Chloride 20 MEQ TAB PO SCH (09:13)
[2017-05-07] MEDS: Heparin 5,000 UNITS/ML VIAL SC SCH ×2 (09:14→21:03)
[2017-05-07] MEDS: Furosemide 20 MG TAB PO SCH (09:14)
[2017-05-07] MEDS ORDERED: Potassium Chloride 10 MEQ TAB PO SCH (09:15)
--- NOTE | 2017-05-07 09:56 | PRG ---
DATE OF SERVICE: 05/07/2017 She has walked in the halls without any distress. PHYSICAL EXAMINATION: VITAL SIGNS: Sats are 96% on room air, temperature 98, pulse 79, respiration 16, blood pressure 124/ 55. LABORATORY: White count 4000, H&H 11 and 34. Electrolytes are normal. Her I's and O's have been difficult to assess, but 240 in, 600 out. CHEST: Chest revealed no wheezing, crackles. CARDIAC: Normal S1, S2. IMPRESSION: Cardiomyopathy with an estimated ejection fraction of 30-40%. PLAN: She is going to have a LifeVest. She is going to discharge home thereafter. Pulmonary will f gato at a distance.
--- NOTE | 2017-05-07 11:16 | PDOC.PN ---
- Subjective Encounter Start Date: 05/07/17 Encounter Start Time: 11:19 Subjective: No complaints. Doing well. Awaiting life vest -: No acute events overnight. - Objective Resuscitation Status: Resuscitation Status FULL:Full Resuscitation Vital Signs & Weight: Vital Signs (12 hours) Temp Pulse Resp BP Pulse Ox 05/07/17 09:14 71 05/07/17 08:00 98.1 F 71 16 93 L 05/07/17 07:00 98.1 F 71 16 124/55 L 94 L 05/07/17 04:00 98.7 F 66 20 101/42 L 91 L 05/06/17 23:30 99.0 F 74 18 95/44 L 94 L Weight Weight 142 lb 5 oz I&O: 05/06/17 05/07/17 05/08/17 06:59 06:59 06:59 Intake Total 480 240 Output Total 750 600 Balance -270 -360 Result Diagrams: 05/07/17 04:30 05/07/17 04:30 Phys Exam - Physical Examination Constitutional: NAD HEENT: PERRLA Neck: no JVD, supple, full ROM Respiratory: no wheezing, no rales, no rhonchi, clear to auscultation bilateral Cardiovascular: RRR, no significant murmur, no rub Gastrointestinal: soft, non-tender, no distention, positive bowel sounds Musculoskeletal: no edema, pulses present Neurological: non-focal, moves all 4 limbs Psychiatric: normal affect, A&O x 3 Skin: no rash, normal turgor Dx/Plan (1) NSTEMI (non-ST elevated myocardial infarction) Code(s): I21.4 - NON-ST ELEVATION (NSTEMI) MYOCARDIAL INFARCTION Status: Acute Comment: Chest pain free. Stable s/p catheterization. EF 35% per Cath. TTE showed EF of 35-40% w moderate MR and severe TR. Life vest pending. (2) HTN (hypertension) Code(s): I10 - ESSENTIAL (PRIMARY) HYPERTENSION Status: Chronic Qualifiers: Hypertension type: essential hypertension Qualified Code(s): I10 - Essential (primary) hypertension Comment: Controlled and at goal. Continue home medications. (3) Thrombocytosis Status: Chronic Comment: Stable. Continue Hydrea. 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 * . Review of Systems - Medications/Allergies Allergies/Adverse Reactions: Allergies Allergy/AdvReac Type Severity Reaction Status Date / Time codeine Allergy Verified 03/07/17 16:15 donepezil Allergy Verified 03/07/17 16:15 hydrocodone Allergy Emesis Verified 03/07/17 16:15 Medications: Current Medications Aspirin (Ecotrin) 81 mg PO DAILY [facility] Last Admin: 05/07/17 09:13 Dose: 81 mg Carvedilol (Coreg) 1.5625 mg PO BID-[facility] Last Admin: 05/07/17 09:12 Dose: 1.5625 mg Famotidine (Pepcid) 20 mg SLOW IVP Q12HR [facility] Last Admin: 05/07/17 09:13 Dose: 20 mg Furosemide (Lasix) 20 mg PO DAILY [facility] Last Admin: 05/07/17 09:14 Dose: 20 mg Heparin Sodium (Porcine) (Heparin) 5,000 units SC BID [facility] Last Admin: 05/07/17 09:14 Dose: 5,000 units Hydroxyurea (Hydrea) 500 mg PO [facility] [place] Last Admin: 05/06/17 09:31 Dose: 500 mg Lisinopril (Zestril) 2.5 mg PO DAILY [facility] Last Admin: 05/07/17 09:14 Dose: 2.5 mg Morphine Sulfate (Morphine) 2 mg SLOW IVP Q4H PRN PRN Reason: Pain Last Admin: 05/03/17 16:20 Dose: 2 mg Nitroglycerin (Nitrostat) 0.4 mg SL Q5MIN PRN PRN Reason: Chest Pain Ondansetron HCl (Zofran) 4 mg IVP Q6H PRN PRN Reason: Nausea/Vomiting Last Admin: 05/04/17 08:48 Dose: 4 mg Potassium Chloride (K-Dur) 20 meq PO QAM-[facility] Last Admin: 05/07/17 09:13 Dose: 20 meq Potassium Chloride (Klor-Con 10) 10 meq PO QAM-[facility] Potassium Chloride (Klor-Con 10) 10 meq PO NOW [facility] Stop: 05/07/17 11:15 Last Admin: 05/07/17 09:56 Dose: Not Given Sertraline HCl (Zoloft) 100 mg PO [facility] Last Admin: 05/06/17 20:40 Dose: 100 mg Tramadol HCl (Ultram) 50 mg PO Q6H PRN PRN Reason: Moderate Pain (4-6)
--- NOTE | 2017-05-07 20:18 | EKG ---
Test Reason : Blood Pressure : / mmHG Vent. Rate : 074 BPM Atrial Rate : 074 BPM P-R Int : 178 ms QRS Dur : 090 ms QT Int : 432 ms P-R-T Axes : 057 021 084 degrees QTc Int : 479 ms Normal sinus rhythm Septal infarct , age undetermined Abnormal ECG When compared with ECG of 08-MAR-2017 09:01, Septal infarct is now Present ST now depressed in Inferior leads Nonspecific T wave abnormality no longer evident in Inferior leads Nonspecific T wave abnormality now evident in Lateral leads Confirmed by KEEGAN SIGALA (2) on 05/07/2017 8:18:17 PM Referred By: ZAKIYA Confirmed By:KEEGAN SIGALA
[2017-05-08 04:31] LABS: #Eosinphils 0.1 thou/uL (0.0-0.7); #Lymphocytes 1.2 thou/uL (1.20-3.40); #Monocytes 0.6 thou/uL (0.11-0.59); %Basophils 0.5 % (0.0-1.0); %Eosinophils 2.7 % (0.0-10.0); %Lymphocytes 30.6 % (21.0-51.0); %Monocytes 14.6 % (0.0-10.0); %Neutrophils 51.5 % (42.0-75.0); Hemoglobin 12.1 g/dL (12.0-16.0); Mean Corpuscular HGB CONC 34.2 g/dL (32.0-36.0); Mean Corpuscular Hemoglobin 36.4 pg (27.0-31.0); Mean Platelet Volume 7.5 fL (7.4-10.4); Platelet Count 204 thou/uL (130-400); RBC Distribution Width 11.8 % (11.5-14.5); Red Blood Cell (RBC) Count 3.32 mill/uL (4.20-5.40); White Blood Cell (WBC) Count 3.8 thou/uL (4.8-10.8)
[2017-05-08 04:34] LABS: Anion Gap 11 mmol/L (10-20); BUN (Urea Nitrogen) 15 mg/dL (9.8-20.1); Calc. Creatinine Clearance 64 mL/min (70-130); Carbon Dioxide 29 mmol/L (23-31); Chloride 102 mmol/L (98-107); Estimated GFR-MDRD 80; Potassium 3.6 mmol/L (3.5-5.1); Sodium 138 mmol/L (136-145)
[2017-05-08 04:35] LABS: Calcium 8.9 mg/dL (7.8-10.44); Glucose 103 mg/dL (83-110)
[2017-05-08] MEDS ORDERED: Lisinopril 2.5 MG TAB PO SCH ×2 (07:19→09:00)
[2017-05-08] MEDS ORDERED: Potassium Chloride 10 MEQ TAB PO SCH (08:00)
[2017-05-08] MEDS: Carvedilol 3.125 MG TAB PO SCH (08:32)
[2017-05-08] MEDS: Heparin 5,000 UNITS/ML VIAL SC SCH (08:33)
[2017-05-08] MEDS: Aspirin 81 mg Enteric Coated Tablet PO SCH (08:33)
[2017-05-08] MEDS: Hydroxyurea 500 MG CAP PO SCH (08:33)
[2017-05-08] MEDS: Potassium Chloride 20 MEQ TAB PO SCH (08:33)
[2017-05-08] MEDS: Furosemide 20 MG TAB PO SCH (08:33)
--- NOTE | 2017-05-08 10:58 | PDOC.PN ---
- Subjective Encounter Start Date: 05/08/17 Encounter Start Time: 11:00 Subjective: No new complaints. No acute events overnight -: Awaiting Life vest - Objective Resuscitation Status: Resuscitation Status FULL:Full Resuscitation Vital Signs & Weight: Vital Signs (12 hours) Temp Pulse Resp BP Pulse Ox 05/08/17 08:32 71 05/08/17 08:00 98 F 71 18 94 L 05/08/17 07:26 98.7 F 71 16 125/65 94 L 05/08/17 04:00 98.2 F 69 16 102/47 L 94 L 05/07/17 23:25 67 18 97/40 L 94 L Weight Weight 141 lb 1 oz I&O: 05/07/17 05/08/17 05/09/17 06:59 06:59 06:59 Intake Total 240 870 Output Total 600 1425 Balance -360 -555 Result Diagrams: 05/08/17 04:10 05/08/17 04:10 Phys Exam - Physical Examination Constitutional: NAD HEENT: PERRLA, moist MMs, sclera anicteric Neck: no JVD, supple, full ROM Respiratory: no wheezing, no rales, no rhonchi Cardiovascular: RRR, no significant murmur, no rub Gastrointestinal: soft, non-tender, no distention, positive bowel sounds Musculoskeletal: no edema, pulses present Neurological: non-focal, moves all 4 limbs Psychiatric: normal affect, A&O x 3 Skin: no rash, normal turgor Dx/Plan (1) NSTEMI (non-ST elevated myocardial infarction) Code(s): I21.4 - NON-ST ELEVATION (NSTEMI) MYOCARDIAL INFARCTION Status: Acute Comment: Stable, Chest pain free. s/p catheterization. EF 35% per Cath. TTE showed EF of 35-40% w moderate MR and severe TR. Life vest pending. (2) HTN (hypertension) Code(s): I10 - ESSENTIAL (PRIMARY) HYPERTENSION Status: Chronic Qualifiers: Hypertension type: essential hypertension Qualified Code(s): I10 - Essential (primary) hypertension Comment: Controlled and at goal. Continue home medications. (3) Thrombocytosis Status: Chronic Comment: Stable. Continue Hydrea. 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 * . Review of Systems - Medications/Allergies Allergies/Adverse Reactions: Allergies Allergy/AdvReac Type Severity Reaction Status Date / Time codeine Allergy Verified 03/07/17 16:15 donepezil Allergy Verified 03/07/17 16:15 hydrocodone Allergy Emesis Verified 03/07/17 16:15 Medications: Current Medications Aspirin (Ecotrin) 81 mg PO DAILY [facility] Last Admin: 05/08/17 08:33 Dose: 81 mg Carvedilol (Coreg) 1.5625 mg PO BID-[facility] Last Admin: 05/08/17 08:32 Dose: 1.5625 mg Famotidine (Pepcid) 20 mg SLOW IVP Q12HR [facility] Last Admin: 05/07/17 21:04 Dose: 20 mg Furosemide (Lasix) 20 mg PO DAILY [facility] Last Admin: 05/08/17 08:33 Dose: 20 mg Heparin Sodium (Porcine) (Heparin) 5,000 units SC BID [facility] Last Admin: 05/08/17 08:33 Dose: 5,000 units Hydroxyurea (Hydrea) 500 mg PO [facility] Last Admin: 05/08/17 08:33 Dose: 500 mg Lisinopril (Zestril) 1.25 mg PO DAILY [facility] Last Admin: 05/08/17 08:32 Dose: 1.25 mg Morphine Sulfate (Morphine) 2 mg SLOW IVP Q4H PRN PRN Reason: Pain Last Admin: 05/03/17 16:20 Dose: 2 mg Nitroglycerin (Nitrostat) 0.4 mg SL Q5MIN PRN PRN Reason: Chest Pain Ondansetron HCl (Zofran) 4 mg IVP Q6H PRN PRN Reason: Nausea/Vomiting Last Admin: 05/04/17 08:48 Dose: 4 mg Potassium Chloride (Klor-Con 10) 10 meq PO QAM-[facility] Last Admin: 05/08/17 08:34 Dose: Not Given Sertraline HCl (Zoloft) 100 mg PO [facility] Last Admin: 05/07/17 21:03 Dose: 100 mg Sodium Chloride (Flush - Normal Saline) 10 ml IVF Q12HR [facility] Last Admin: 05/08/17 08:34 Dose: 10 ml Sodium Chloride (Flush - Normal Saline) 10 ml IVF PRN PRN PRN Reason: Saline Flush Tramadol HCl (Ultram) 50 mg PO Q6H PRN PRN Reason: Moderate Pain (4-6)
[2017-05-08 11:09] VITALS: BP 129/52; TEMP 98.4
--- NOTE | 2017-05-08 14:42 | DIS ---
DATE OF ADMISSION: 05/03/2017 DATE OF DISCHARGE: 05/08/2017 DISCHARGE DIAGNOSES: Non-ST elevation myocardial infarction, hypertension, and thrombocytosis. HISTORY OF PRESENT ILLNESS/HOSPITAL COURSE: Pleasant 81-year-old patient who was recently treated fo r dental abscess. The patient reported chest discomfort, nausea, vomiting, diaphoresis, and shortnes s of breath on the day of admission. She also had an episode of urinary incontinence as well as abdo jocy pain that radiated to her back. She denied any other symptoms. Her physical examination was l argely unremarkable apart from slight epigastric pain with palpation. EKG showed left axis deviation with poor anterior R-wave progression. She had a chest CT which was negative for aortic dissection or aneurysm. There was stenosis and chronic findings in the branching vasculature including the yasir ac and mesenteric arteries including an intimal dissection. No pulmonary embolus was visualized. A chest x-ray showed no acute cardiopulmonary abnormalities. CBC shows WBC of 6, hemoglobin of 13.9, p latelet of 217. Serum chemistry was largely unremarkable. Lactic acid was 3.2, which reflects reple tion of 1.4. Troponin was 0.5 with a second trending up to 4.891. She was admitted to the [facility] for non-ST segment myocardial infarction, placed on therapeutic Lovenox. Cardiology was consulted. The patient eventually had cardiac catheterization, which showed ejection fraction of 35%. She also had a TTE, which showed ejection fraction of 35%-40% with moderate mitral regurgitation and severe TR. C ardiology recommends placing a LifeVest and the patient had a LifeVest fitted before discharge. Her other medical conditions were well controlled with hypertension and thrombocytosis for which she was continued on Hydrea on her home. DISCHARGE MEDICATIONS: Aspirin 81 mg daily, carvedilol 1.5625 mg b.i.d., vitamin D3 2000 units daily , fluticasone propionate 2 sprays in each naris, furosemide 20 mg daily, Hydrea 500 mg on Saturday, and Saturday, lisinopril 1.25 mg daily, nitroglycerin 0.4 mg sublingually every 5 minutes for c hest pain, and sertraline 100 mg at bedtime. PHYSICAL EXAMINATION: She was examined on the day of discharge. Vital signs were stable. For dayday goldstein, see today's progress notes. CONSULTS: Cardiology and Pulmonology. PROCEDURES: Cardiac catheterization showed normal coronaries and Takotsubo cardiomyopathy. CONDITION AT DISCHARGE: Stable and improved. DIET: Heart healthy. ACTIVITY: To resume as tolerated. Care goals to follow up with her primary care physician within 1 week for repeat labs. Discharge time 65 minutes including chart review and documentation.
== END 2017-05-08 15:01 | disposition home or self-care (01) | DRG 280 ==
LOC: SCSER 09:17 → IMCU/EMU 11:20
PROVIDERS: ADMIT Internal Medicine Addiction Medicine; ATTEND Internal Medicine Addiction Medicine
PROC: 4A023N7 Measurement of Cardiac Sampling and Pressure, Left Heart, Percutaneous Approach (ICD-10-PCS; principal; 2017-05-04)
PROC: B2111ZZ Fluoroscopy of Multiple Coronary Arteries using Low Osmolar Contrast (ICD-10-PCS; 2017-05-04)
PROC: B2151ZZ Fluoroscopy of Left Heart using Low Osmolar Contrast (ICD-10-PCS; 2017-05-04)
DX: I21.4 Non-ST elevation (NSTEMI) myocardial infarction (principal); J96.91 Respiratory failure, unspecified with hypoxia; I50.20 Unspecified systolic (congestive) heart failure; I51.81 Takotsubo syndrome; I11.0 Hypertensive heart disease with heart failure; E78.5 Hyperlipidemia, unspecified; F41.9 Anxiety disorder, unspecified; F32.9 Major depressive disorder, single episode, unspecified; K04.7 Periapical abscess without sinus; D47.3 Essential (hemorrhagic) thrombocythemia; Z88.5 Allergy status to narcotic agent; Z88.8 Allergy status to other drugs, medicaments and biological substances; Z79.82 Long term (current) use of aspirin; Z79.899 Other long term (current) drug therapy
CPT/HCPCS: 36415; 71045; 71275; 80048; 80053; 80061; 82553; 83605; 83690; 83880; 84484; 85025; 85347; 87040; 93005; 93010; 93306; 93458; 93798; 96365; 96367; 96372; 96375; 99152; C1769; J1644; J1650; J2001; J2250; J2405; J2543; J2720; J3370

== ENCOUNTER 2017-10-14 14:40 | Outpatient (CLI) | payer MEDICARE | END 2017-10-14 14:41 | disposition home or self-care (01) | LOC: BICMAMMO 14:40 | PROVIDERS: ATTEND Family Medicine | DX: Z13.820 Encounter for screening for osteoporosis (principal); M85.89 Other specified disorders of bone density and structure, multiple sites; Z78.0 Asymptomatic menopausal state | CPT/HCPCS: 77080 ==

== ENCOUNTER 2019-04-24 08:37 | Outpatient (CLI) | payer MEDICARE ==
--- NOTE | 2019-04-24 09:56 | CT ---
CT ABDOMEN AND PELVIS WITH ORAL AND IV CONTRAST: HISTORY: Abdominal pain. Left-sided abdominal pain and concern for diverticulitis. FINDINGS: There are mild dependent changes in the lung bases. A small hiatal hernia is present. The liver, sp javy, pancreas, adrenal glands, and kidneys are normal. The patient is post cholecystectomy and hyst erectomy. No free air, free fluid, or lymphadenopathy is seen in the abdomen or pelvis. The small bowel loops are not abnormally dilated. There is sigmoid diverticula. No pericolonic inflammatory changes are s een to suggest diverticulitis. No abnormally loculated fluid collection was noted to suggest abscess formation. There is no evidence of aneurysmal dilatation of the abdominal aorta. There are degener ative changes in the spine. 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 IMPRESSION: 1. Sigmoid diverticulosis without diverticulitis. 2. Small hiatal hernia. POS: TIANA
[2019-04-24] MEDS ORDERED: Iopamidol 370 76% 100 ML VIAL ONE (13:45)
== END 2019-04-24 08:38 | disposition home or self-care (01) ==
LOC: CT 08:37
PROVIDERS: ATTEND Family Medicine
DX: R10.9 Unspecified abdominal pain (principal); K57.30 Diverticulosis of large intestine without perforation or abscess without bleeding; K44.9 Diaphragmatic hernia without obstruction or gangrene
CPT/HCPCS: 74177; Q9967

== ENCOUNTER 2019-11-10 14:42 | Outpatient (CLI) | payer MEDICARE ==
--- NOTE | 2019-11-10 16:20 | BD ---
BONE DENSITOMETRY USING DEXA: Date: 11/10/2019 HISTORY: Postmenopausal screening for osteoporosis. FINDINGS: Lumbar Spine: BMD (g/cm2) L1 0.750 T-Score: -2.2 Z-Score: 0.3 L2 0.789 T-Score: -2.2 Z-Score: 0.6 L3 0.782 T-Score: -2.7 Z-Score: 0.2 L4 0.843 T-Score: -2.0 Z-Score: 1.0 L1-L4 0.794 T-Score: -2.3 Z-Score: 0.5 Femoral Neck: 0.629 T-Score: -2.0 Z-Score: 0.4 Total Femur: 0.807 T-Score: -1.1 Z-Score: 1.1 There has been interval improvement of 2.2% in the bone mineral density of the lumbar spine and a red uction of 3.2% in the bone mineral density of the proximal femur since 05/30/2015. The 10 year fracture risk for a major osteoporotic fracture is 15% and for a hip fracture is 4.5%. IMPRESSION: Osteopenia. POS: AH
== END 2019-11-10 14:43 | disposition home or self-care (01) ==
LOC: BICMAMMO 14:42
PROVIDERS: ATTEND Family Medicine
DX: Z13.820 Encounter for screening for osteoporosis (principal); M85.89 Other specified disorders of bone density and structure, multiple sites; Z78.0 Asymptomatic menopausal state
CPT/HCPCS: 77080

== ENCOUNTER 2021-11-03 14:29 | Outpatient (CLI) | payer MEDICARE | END 2021-11-03 14:30 | disposition home or self-care (01) | LOC: SCSMRI 14:29 | PROVIDERS: ATTEND Student in an Organized Health Care Education/Training Program | DX: H90.5 Unspecified sensorineural hearing loss (principal); I67.89 Other cerebrovascular disease; J39.2 Other diseases of pharynx | CPT/HCPCS: 70553 ==

== ENCOUNTER 2023-11-20 10:47 | Outpatient (CLI) | payer MEDICARE | END 2023-11-20 10:48 | disposition home or self-care (01) | LOC: SCSRAD 10:47 | PROVIDERS: ATTEND Family Medicine | DX: M79.672 Pain in left foot (principal); S92.325A Nondisplaced fracture of second metatarsal bone, left foot, initial encounter for closed fracture ==

== ENCOUNTER 2023-12-27 12:22 | Outpatient (CLI) | payer MEDICARE | END 2023-12-27 12:23 | disposition home or self-care (01) | LOC: SCSRAD 12:22 | PROVIDERS: ATTEND Family Medicine | DX: S92.325D Nondisplaced fracture of second metatarsal bone, left foot, subsequent encounter for fracture with routine healing (principal) ==